=== PATIENT | male | born 1940 | race Caucasian/White ===

== ENCOUNTER 2019-06-27 08:38 | Day surgery (SDC) | payer OTHER ==
[~2019-06-27] VITALS: Ht 175.3 cm; Wt 81.6 kg
--- NOTE | ~2019-06-27 | OP ---
PATIENT NAME: ABELARDO CARCAMO MEDICAL RECORD: [id number] :38 LOCATION:[facility] ADMISSION DATE: SURGEON: JOJO CHAPMAN MD DATE OF OPERATION: 06/27/2019 PREOPERATIVE DIAGNOSES: Lumbar spinal stenosis and foraminal stenosis L1-L2, left. POSTOPERATIVE DIAGNOSES: Lumbar spinal stenosis and foraminal stenosis L1-L2, left. PROCEDURE: Lumbar laminectomy, medial facetectomy, and foraminotomy L1-L2 on the left with METRx retractor and microscope. SURGEON: Jojo Chapman MD DESCRIPTION AND TECHNIQUE: After induction of general endotracheal anesthesia, the patient was rolled prone on the Vaibhav frame. Lumbar spine was prepped and draped in usual sterile fashion. Fluoroscopic x-ray and spinal needle localized the L1-L2 interspace on the left side. A series of dilators was used to advance a METRx retractor at the L1-L2 interspace on the left side. Level was confirmed with fluoroscopic x-ray. A microscope and Midas Eron drill were used to perform laminotomy, medial facetectomy, and foraminotomy at L1-L2 on the left. Hypertrophied ligamentum flavum was removed with Cloward rongeurs. Following this, the central dura was decompressed well. A foraminotomy was carried out at L1-2 on the left to remove hypertrophied ligamentum flavum within the foramen. This decompressed the L1 nerve root well. Meticulous hemostasis was maintained throughout. The wounds were irrigated with copious amounts of Ancef irrigant solution. The fascia was closed with 2-0 Vicryl suture. Subdermal layer was closed with 3-0 Vicryl suture. Skin was closed with oh. A sterile dressing was applied to the wound. The patient was awakened in good condition and taken to recovery. All counts were reported as correct. Estimated blood loss was minimal. TRANSINT:[id number] Voice Confirmation ID: [id number] DOCUMENT ID: [id number] JOJO CHAPMAN MD CC: [id number] DICTATION DATE: 06/28/19 1445 MENTAL HEALTH SPECIALIST: 06/29/19 0101 [facility] 06/27/19 [place] [address]
[~2019-06-27 08:38] MED LIST: COUMADIN5 MG PO; LIPITOR40 MG PO; METOPROLOL TART50 MG PO; NEURONTIN 300300 MG PO
[2019-06-27 09:19] LABS: HEMATOCRIT 41.9 % (42.0-54.0); HEMOGLOBIN 14.3 g/dL (13.5-17.5); MCH 29.5 pg (26.0-34.0); MCHC 34.1 g/dL (31.0-37.0); MCV 86.4 fL (80.0-100.0); MEAN PLATELET VOLUME 11.2 fL (7.4-10.4); RBC 4.85 10x6/uL (4.20-6.10); RDW 14.2 % (11.5-14.5); WBC 5.1 10x3/uL (4.8-10.8)
[2019-06-27] MEDS ORDERED: NAPROXEN250 MG PO (10:14)
[2019-06-27 10:23] VITALS: BP 130/83; Ht 175.3 cm; Wt 81.6 kg
[2019-06-27] MEDS ORDERED: HYDROCODON-ACE1 EA10 PO (12:36)
--- NOTE | 2019-06-27 12:52 | NUR ---
SENSATIONS INTACT AND PATIENT MOVES ALL EXTREMITIES WITH PURPOSEFUL MOVEMENT
== END 2019-06-27 14:50 | disposition home or self-care (01) ==
LOC: D.OPS 08:38 → D.PAN 11:30 → D.OPS 11:30
PROVIDERS: Anesthesiology; ATTEND Neurological Surgery
DX: M48.061 Spinal stenosis, lumbar region without neurogenic claudication (principal)